=== PATIENT | male | born 1945 | race Caucasian/White ===

== ENCOUNTER 2023-10-11 13:00 | Emergency (ER) | payer OTHER, MEDICARE ==
[~2023-10-11] VITALS: Ht 167.6 cm; Wt 88.4 kg
[2023-10-11] MEDS ORDERED: VIBRAMYCIN100 M2 PO (17:09)
[2023-10-11] MEDS ORDERED: PREDNISONE20 MG PO (17:09)
[2023-10-11 17:14] VITALS: BP 118/69
== END 2023-10-11 17:21 | disposition home or self-care (01) | DRG 195 ==
LOC: ED 13:00
DX: J18.9 Pneumonia, unspecified organism (principal)